=== PATIENT | female | born 1990 ===

== ENCOUNTER 2024-02-06 11:49 | Outpatient (REF) | payer BC, SELFPAY ==
[2024-02-07 14:43] LABS: Helicobacter pylori Ag, Feces Negative (Negative)
== END 2024-02-06 11:50 | disposition home or self-care (01) ==
LOC: LBN 11:49
PROVIDERS: Visit Provider Naturopath
DX: R10.11 Right upper quadrant pain (principal); R14.0 Abdominal distension (gaseous); R53.83 Other fatigue; A09 Infectious gastroenteritis and colitis, unspecified
CPT/HCPCS: 87338

== ENCOUNTER 2024-02-11 02:05 | Outpatient (CLI) | payer BC, SELFPAY ==
[2024-02-13 22:40] LABS: Bartonella Henselae IgG <1:128 titer (<1:128); Bartonella Henselae IgM <1:20 titer (<1:20); Bartonella Quintana IgG <1:128 titer (<1:128); Bartonella Quintana IgM <1:20 titer (<1:20)
[2024-02-14 14:20] LABS: Bartonella PCR Negative; Specimen Source BLOOD
== END 2024-02-11 02:06 | disposition home or self-care (01) ==
LOC: LBO 02:05
PROVIDERS: Visit Provider Naturopath
DX: R10.11 Right upper quadrant pain (principal); R14.0 Abdominal distension (gaseous); A09 Infectious gastroenteritis and colitis, unspecified; R53.83 Other fatigue; R10.13 Epigastric pain
CPT/HCPCS: 87801; 86611

== ENCOUNTER 2024-02-26 00:44 | Outpatient (CLI) | payer BC, SELFPAY ==
--- NOTE | 2024-02-26 | DI.RAD_ITS ---
Exam(s) XR CHEST 2V PA LATERAL EXAM: XR CHEST 2V PA LATERAL CLINICAL HISTORY: ACUTE COUGH, R05.1 TECHNIQUE: 2D digital imaging was performed of the chest. Two images were obtained. PA and lateral views were obtained. COMPARISON: No exams were available for comparison FINDINGS: MEDIASTINUM: Normal. HEART: Normal. PULMONARY VASCULATURE: Normal. LUNGS: Clear. PLEURAL SPACE: No pleural effusion or pneumothorax. BONE:Within normal limits for the patient's age. OTHER FINDINGS:Normal. IMPRESSION: No acute pulmonary findings. DATA REPOSITORY: RADIATION DOSE DELIVERED:
--- NOTE | 2024-02-26 | DI.US_ITS ---
Exam(s) US ABDOMEN EXAM: US ABDOMEN CLINICAL HISTORY: ABD DISTENSION,GAS, R14.0,LUQ AND RUQ PAIN,R10.11,R10.12,FUNCTIONAL TECHNIQUE: Ultrasound abdomen performed using standard protocol. COMPARISON: No exams were available for comparison FINDINGS: ABDOMINAL AORTA AND IVC: Visualized portions normal caliber. PANCREAS: Normal where visualized. LIVER: Normal. Hepatopetal flow in the Portal Vein. The liver measures 15.3 cm long. No hepatic mass is identified. GALLBLADDER:No evidence of cholelithiasis. No evidence of wall thickening. No pericholecystic fluid i dentified. BILIARY SYSTEM: Common bile duct measures < 7 mm. No intrahepatic biliary ductal dilation. DOUGLAS'S SIGN: Negative. KIDNEYS: Kidneys are symmetric in size. No evidence of renal calculi. No evidence of hydronephrosis. No renal mass or cyst identified. SPLEEN: Not enlarged. ASCITES: None seen. IMPRESSION: Normal sonographic appearance of the upper abdomen. DATA REPOSITORY:
== END 2024-02-26 01:04 ==
LOC: DI 00:44
PROVIDERS: Visit Provider Naturopath
DX: R05.1 Acute cough (principal); R10.11 Right upper quadrant pain
CPT/HCPCS: 71046; 76700

== ENCOUNTER 2024-12-09 12:01 | Outpatient (CLI) | payer BC, SELFPAY ==
--- NOTE | 2024-12-09 | DI.RAD_ITS ---
Exam(s) XR CHEST 2V PA LATERAL EXAM: XR CHEST 2V PA LATERAL CLINICAL HISTORY: R05.9 Cough unspecified TECHNIQUE: 2D digital imaging was performed of the chest. Two images were obtained. PA and lateral views were obtained. COMPARISON: CR XR CHEST 2V PA LATERAL from 02/26/2024 FINDINGS: MEDIASTINUM: Normal. HEART: Normal. PULMONARY VASCULATURE: Normal. LUNGS: Clear. PLEURAL SPACE: No pleural effusion or pneumothorax. BONE:Within normal limits for the patient's age. OTHER FINDINGS:Normal. IMPRESSION: No acute pulmonary findings. DATA REPOSITORY: RADIATION DOSE DELIVERED:
== END 2024-12-09 12:21 ==
PROVIDERS: Visit Provider Physician Assistant Medical
DX: R05.9 Cough, unspecified (principal)
CPT/HCPCS: 71046

== ENCOUNTER 2025-06-09 10:54 | Outpatient (CLI) | payer BC, SELFPAY | END 2025-06-09 10:55 | disposition home or self-care (01) | LOC: LBO 10:55 | PROVIDERS: PCP Nurse Practitioner Family; Visit Provider Nurse Practitioner Family | DX: N97.9 Female infertility, unspecified (principal) | CPT/HCPCS: 36415; 82627; 83498; 84403; 82157; 84146 ==